=== PATIENT | female | born 1985 | race Caucasian/White ===

== ENCOUNTER 2017-10-02 05:32 | Day surgery (SDC) | payer BC ==
[~2017-10-02] VITALS: Ht 160 cm; Wt 52.2 kg
[~2017-10-02 05:32] MED LIST: MIRENA1 EACH IY
[2017-10-02 06:42] VITALS: BP 119/80
[2017-10-02] MEDS ORDERED: NORCO 5/3251 TABLET PO (08:58)
[2017-10-02 09:56] VITALS: BP 137/88
[2017-10-02 10:59] VITALS: BP 128/79
== END 2017-10-02 11:15 | disposition home or self-care (01) ==
LOC: SDC 05:32
PROC: 0WQF0ZZ Repair Abdominal Wall, Open Approach (ICD-10-PCS; principal; 2017-10-02)
DX: K42.0 Umbilical hernia with obstruction, without gangrene (principal); Z82.49 Family history of ischemic heart disease and other diseases of the circulatory system; Z88.1 Allergy status to other antibiotic agents; Z88.0 Allergy status to penicillin; Z88.7 Allergy status to serum and vaccine
CPT/HCPCS: J0131; J0330; J0690; J1170; J2250; J3010; S0020